=== PATIENT | female | born 1980 | race American Indian/Alaskan Native ===

== ENCOUNTER 2017-10-11 11:03 | Emergency (ER) | payer MEDICAID ==
--- NOTE | 2017-10-11 11:42 | Emergency Department Report ---
ED Female HPI - General Chief complaint: Urogenital-Female Stated complaint: NUMB Time Seen by Provider: 10/11/17 11:26 Source: patient Mode of arrival: Ambulatory Limitations: No Limitations - History of Present Illness Initial comments: This is a 37-year-old -Fil[place]ino female who presents with vaginal discharge for one week. Past medical history of diabetes type 2. Patient reported discharge is heavy running like a faucet. Discharge is also greenish and foul-smelling. Patient's states she is having some lower pelvic pain that is 4 out of 10 scale, crampy sensation and intermittent. Last menstrual period 09/16/2017, [id number]. Complaint: vaginal discharge (Green vaginal discharge with foul odor) Onset/Timin -: week(s) Location: suprapubic Radiation: non-radiating Severity: moderate Severity scale (0 -10): 4 Quality: cramping, aching Consistency: intermittent Improves with: none Worsens with: movement Are you Now?: No Last Menstrual Period: 09/16/17 EDC: 06/23/18 Associated Symptoms: vaginal discharge, vaginal bleeding, abdominal pain ( abdominal cramping). denies: nausea/vomiting, fever/chills, headaches, loss of appetite, dysuria, hematuria, rash, seizure, shortness of breath, syncope, weakness - Related Data Sexually active: Yes : 11 Para: 8 A: 3 Allergies Allergy/AdvReac Type Severity Reaction Status Date / Time No Known Allergies Allergy Verified 10/11/17 11:11 ED Review of Systems ROS: Stated complaint: NUMB Other details as noted in HPI Constitutional: denies: chills, fever Respiratory: denies: cough, shortness of breath, wheezing Cardiovascular: denies: chest pain, palpitations Gastrointestinal: abdominal pain (suprapubic pelvic pain). denies: nausea, vomiting, diarrhea, constipation, hematemesis, melena, hematochezia Genitourinary: discharge (Green foul discharge). denies: urgency, dysuria, abnormal menses, dyspareunia Musculoskeletal: denies: back pain, joint swelling, arthralgia Skin: denies: rash, lesions Neurological: denies: headache, weakness, paresthesias Psychiatric: denies: anxiety, depression ED Past Medical Hx - Past Medical History Previous Medical History?: No Hx Diabetes: Yes - Surgical History Past Surgical History?: No - Social History Smoking Status: Never Smoker Substance Use Type: None ED Physical Exam - General Limitations: No Limitations General appearance: alert, in no apparent distress - Respiratory Respiratory exam: Present: normal lung sounds bilaterally. Absent: respiratory distress - Cardiovascular Cardiovascular Exam: Present: regular rate, normal rhythm. Absent: systolic murmur, diastolic murmur, rubs, gallop - GI/Abdominal GI/Abdominal exam: Present: soft, tenderness (suprapubic tenderness on palpation ), normal bowel sounds. Absent: distended, guarding, rebound, rigid, organomegaly, mass - External exam: Present: normal external exam. Absent: erythema, swelling, lesions, lacerations, ecchymosis, bleeding Speculum exam: Present: vaginal discharge (malodorous blood-tinged discharge), vaginal bleeding. Absent: erythema, cervical discharge, foreign body, tissue, laceration Bi-manual exam: Present: normal bi-manual exam - Back Exam Back exam: Present: normal inspection. Absent: CVA tenderness (R), CVA tenderness (L), rash noted - Neurological Exam Neurological exam: Present: alert, oriented X3 - Psychiatric Psychiatric exam: Present: normal affect, normal mood - Skin Skin exam: Present: warm, dry, intact, normal color. Absent: rash ED Course Vital Signs 10/11/17 11:06 Temperature 98.2 F Pulse Rate 102 H Respiratory 18 Rate Blood Pressure 156/98 O2 Sat by Pulse 97 Oximetry ED Medical Decision Making - Medical Decision Making This is a 37-year-old -Fil[place] female who presents with suprapubic pain and malodorous greenish discharge for 1 week. Patient was examined by me. Vitals are stable and in no acute distress. Obtain urinalysis, urine hCG, wet prep and gonorrhea and chlamydia probe via pelvic exam. Wet prep negative for Trichomonas, yeast, and clue cells. Glucose 378, patient given 4 units of humalog. Patient is uncontrolled diabetic. She will f/u with PCP at [facility] for further management. Empirically treated with Rocephin 250 mg IM, and azithromycin 1 g by mouth for gonorrhea and chlamydia. Negative . Large amount of blood in urinalysis, patient is currently starting her menses. Patient instructed to follow up with medical records and 2-5 days for lab results. Discharged home in stable condition. Discussed prevention options. F/U with PCP or Health Department. Critical care attestation.: If time is entered above; I have spent that time in minutes in the direct care of this critically ill patient, excluding procedure time. ED Disposition Clinical Impression: STD exposure, Hyperglycemia Diabetes mellitus Qualifiers: Diabetes mellitus type: type 2 Diabetes mellitus terminal superintendent insulin use: without jail use Diabetes mellitus complication status: without complication Qualified Code(s): E11.9 - Type 2 diabetes mellitus without complications Disposition: TO HOME OR SELFCARE Is pt being admited?: No Does the pt Need Aspirin: No Condition: Stable Instructions: Sexually Transmitted Diseases (ED), Safe Sex (ED), Diabetes Mellitus Type 2 in Adults (ED) Additional Instructions: Avoid drinking alcohol while taking antibiotics and for 24 hours after completion. Continue safe sexual intercourse. Continue taking metformin and have follow-up with your primary care provider for management of diabetes in the next week. Follow up with Primary Care Provider or health department. Referrals: [facility] [Outside] - 3-5 Days [facility] [Outside] - 3-5 Days [facility] [Outside] - 3-5 Days [facility] [Outside] - 3-5 Days Forms: Work/School Release Form(ED) Time of Disposition: 13:21 Print Language: ERITREAN
[2017-10-11 11:44] LABS: Color,Urine Red (Yellow)
[2017-10-11 11:45] LABS: Bilirubin,Urine NEG (Negative); Blood,Urine LG (Negative); Mucus,Urine 1+ /HPF; Urobilinogen,Urine < 2.0 mg/dL (<2.0)
[2017-10-11 11:46] LABS: RBC,Urine > 182.0 /HPF (0.0-6.0); WBC,Urine > 182.0 /HPF (0.0-6.0)
[2017-10-11 11:47] LABS: HCG Qualitative,Urine Negative (Negative)
[2017-10-11] MEDS ORDERED: HumaLOG SUB-Q ONE (11:53)
[2017-10-11] MEDS ORDERED: ROCEPHIN IM ONE (13:24)
[2017-10-11] MEDS ORDERED: XYLOCAINE 1% MPF 5 mL INFILTRATI ONE (13:24)
[2017-10-11] MEDS ORDERED: ZITHROMAX PO ONE (13:24)
[2017-10-11 14:14] VITALS: BP 136/72
== END 2017-10-11 14:12 | disposition home or self-care (01) ==
LOC: ED 11:03
DX: Z20.2 Contact with and (suspected) exposure to infections with a predominantly sexual mode of transmission (principal); E11.65 Type 2 diabetes mellitus with hyperglycemia
CPT/HCPCS: 81001; 81025; 82962; 87210; 87591; 96372; 99284; J0696; J1815